=== PATIENT | female | born 1985 | race African-American/Black ===

== ENCOUNTER 2020-01-07 22:26 | Emergency (ER) | payer MEDICAID ==
[~2020-01-07] VITALS: Ht 160 cm; Wt 81.6 kg
[2020-01-07 22:48] VITALS: BP 89/56
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
[2020-01-07] MEDS ORDERED: IBUPROFEN 600 MG TAB PO ONE (23:20)
[2020-01-07] MEDS ORDERED: CYCLOBENZAPRINE 10 MG TAB PO ONE (23:20)
[2020-01-07 23:43] VITALS: BP 119/71
--- NOTE | 2020-01-07 23:43 | NUR ---
Patient discharged with v/s stable. Written and verbal after care instructions given and explained. Patient alert, oriented and verbalized understanding of instructions. Ambulatory with steady gait. All questions addressed prior to discharge. ID band removed. Patient advised to follow up with PMD. Rx of IBUPROFEN, ZOFRAN, FLEXERIL given. Patient educated on indication of medication including possible reaction and side effects. Opportunity to ask questions provided and answered.
== END 2020-01-07 23:43 | disposition home or self-care (01) ==
LOC: MED 22:26
DX: M79.10 Myalgia, unspecified site (principal); V89.2XXA Person injured in unspecified motor-vehicle accident, traffic, initial encounter; Y93.89 Activity, other specified; Y92.89 Other specified places as the place of occurrence of the external cause; Y99.8 Other external cause status
CPT/HCPCS: 99283

== ENCOUNTER 2020-03-16 11:06 | Emergency (ER) | payer MEDICAID ==
[~2020-03-16] VITALS: Ht 160 cm; Wt 81.6 kg
[2020-03-16 11:12] VITALS: BP 117/70
--- NOTE | 2020-03-16 11:28 | NUR ---
PATIENT PRESENTS TO ED WITH C/O VAGINAL BLEEDING X 2 DAYS . PT STATES LMP 12/31/2019. PT IS 1 YEAR POST- AND HAS BEEN BREAST FEEDING. PT ALSO STATES THAT SHE STARTED PASSING LARGE CLOTS LAST NIGHT . DENIES N/V/D; SKIN IS PINK/WARM/DRY; AAOX4 WITH EVEN AND STEADY GAIT; LUNGS CLEAR BL; HR EVEN AND REGULAR; PT DENIES ANY FEVER, CP, SOB, OR COUGH AT THIS TIME; PATIENT STATES PAIN OF 0/10 AT THIS TIME; VSS; PATIENT POSITIONED FOR COMFORT; HOB ELEVATED; BEDRAILS UP X2; BED DOWN. ER MD MADE AWARE OF PT STATUS.
--- NOTE | 2020-03-16 11:31 | NUR ---
Dr. Clay is evaluating the patient at bedside.
--- NOTE | 2020-03-16 11:50 | NUR ---
ASSISTED TO BR, UA OBTAINED AND DIPPED. HCG (+)
[2020-03-16] MEDS ORDERED: MORPHINE SULFATE 4 MG/ML SYR IVP ONE (12:00)
[2020-03-16] MEDS ORDERED: NACL 0.9% 1,000 ML IV ONE (12:00)
[2020-03-16] MEDS ORDERED: ONDANSETRON 4 MG/2 ML VIAL IVP ONE (12:00)
--- NOTE | 2020-03-16 12:15 | NUR ---
20G SL ESTABLISHED RIGHT A/C
[2020-03-16 12:24] LABS: BASOPHILS % (AUTO) 0.4 % (0.0-2.0); EOSINOPHILS # (AUTO) 0.1 K/uL (0-0.4); EOSINOPHILS % (AUTO) 0.9 % (0.0-4.0); HEMATOCRIT 36.2 % (36-48); HEMOGLOBIN 12.2 g/dL (12.0-16.0); LYMPHOCYTES # (AUTO) 1.4 K/uL (2.5-16.5); LYMPHOCYTES % (AUTO) 14.6 % (20.5-51.1); MEAN CORPUSCULAR HEMOGLOBIN 31 pg (27-31); MEAN CORPUSCULAR HGB CONC 34 g/dL (33-37); MEAN CORPUSCULAR VOLUME 91.7 fL (80-94); MONOCYTES # (AUTO) 0.3 K/uL (0.8-1.0); MONOCYTES % (AUTO) 3.5 % (1.7-9.3); NEUTROPHILS # (AUTO) 7.8 K/uL (1.8-7.7); NEUTROPHILS % (AUTO) 80.6 % (42.2-75.2); PLATELET COUNT (AUTO) 279 K/uL (140-450); RED BLOOD CELL COUNT(AUTO) 3.95 MIL/uL (4.20-5.40); WHITE BLOOD COUNT (AUTO) 9.6 K/uL (4.8-10.8)
[2020-03-16 12:31] LABS: APPEARANCE,URINE BLOODY (CLEAR); BILIRUBIN,URINE NEGATIVE (NEGATIVE); BLOOD, URINE 3+ (NEGATIVE); COLOR,URINE RED (YELLOW); LEUKOCYTE ESTERASE ,URINE TRACE (NEGATIVE); NITRITE, URINE POSITIVE (NEGATIVE); PH,URINE 7.5 (5.0-9.0); UGLUCOSE NEGATIVE (NEGATIVE)
--- NOTE | 2020-03-16 12:35 | NUR ---
US AT BEDSIDE
--- NOTE | 2020-03-16 12:40 | NUR ---
AMBULATED TO BR WITH ASSIST
[2020-03-16 12:43] LABS: RBC,URINE >100 /HPF (0-5); WBC,URINE 16-25 (MOD) /HPF (0-5)
[2020-03-16 12:47] LABS: CARBON DIOXIDE 24.8 mmol/L (21-32); CREATININE 0.7 mg/dL (0.6-1.3); POTASSIUM 3.8 mmol/L (3.5-5.1)
[2020-03-16 12:53] LABS: ALBUMIN 4.1 g/dL (3.4-5.0); TOTAL BILIRUBIN 0.4 mg/dL (0.0-1.0)
[2020-03-16] MEDS ORDERED: HYDROcodone/APAP 5/325 MG 1 TAB TAB PO ONE (15:05)
--- NOTE | 2020-03-16 15:10 | NUR ---
PAIN AND CRAMPING ARE RETURNINING, 7-12/22. MEDICATED AAS ORDERED
--- NOTE | 2020-03-16 16:30 | NUR ---
Patient discharged with v/s stable. Written and verbal after care instructions given and explained. Patient alert, oriented and verbalized understanding of instructions. Ambulatory with steady gait. All questions addressed prior to discharge. ID band removed. Patient advised to follow up with PMD. Rx of MACROBID AND ZOFRAN given. Patient educated on indication of medication including possible reaction and side effects. Opportunity to ask questions provided and answered.
[2020-03-16 16:47] VITALS: BP 105/66
== END 2020-03-16 16:30 | disposition home or self-care (01) ==
LOC: MED 11:06
DX: O20.0 Threatened abortion (principal); Z88.0 Allergy status to penicillin; Z98.890 Other specified postprocedural states
CPT/HCPCS: 36415; 76817; 80053; 81001; 84702; 85025; 86900; 86901; 96361; 96374; 96375; 99284; J2270; J2405; Q0092; J7030

== ENCOUNTER 2020-08-12 08:29 | Emergency (ER) | payer MEDICAID ==
[~2020-08-12] VITALS: Ht 160 cm; Wt 77.1 kg
[2020-08-12 08:31] VITALS: BP 138/91
--- NOTE | 2020-08-12 08:37 | NUR ---
Patient ambulated with steady gait to bed 6.
[2020-08-12] MEDS ORDERED: KETOROLAC 60 MG/2 ML VIAL IM ONE (08:45)
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
[2020-08-12] MEDS ORDERED: ACET-8386 PO (09:01)
[2020-08-12] MEDS ORDERED: IBUP-2213 PO (09:01)
[2020-08-12 09:24] VITALS: BP 138/91
--- NOTE | 2020-08-12 09:25 | NUR ---
Patient discharged with v/s stable. Written and verbal after care instructions ABOUT SHOULDER PAIN given and explained. Patient alert, oriented and verbalized understanding of instructions. Ambulatory with steady gait. All questions addressed prior to discharge. ID band removed. Patient advised to follow up with PMD. Rx of NORCO AND IBUPROFEN given. Patient educated on indication of medication including possible reaction and side effects. Opportunity to ask questions provided and answered.
== END 2020-08-12 09:25 | disposition home or self-care (01) ==
LOC: MED 08:29
DX: M25.512 Pain in left shoulder (principal); Z88.0 Allergy status to penicillin; Z98.890 Other specified postprocedural states; Z79.899 Other long term (current) drug therapy
CPT/HCPCS: 96372; 99283; J1885

== ENCOUNTER 2021-06-02 01:16 | Emergency (ER) | payer MEDICAID ==
[~2021-06-02] VITALS: Ht 160 cm; Wt 77.1 kg
[~2021-06-02 01:16] MED LIST: ACET-8386 PO; IBUP-2213 PO
[2021-06-02 01:33] VITALS: BP 113/71
--- NOTE | 2021-06-02 02:53 | NUR ---
seen and evaluated by Dr. Rivers
--- NOTE | 2021-06-02 02:58 | NUR ---
Patient discharged with v/s stable. Written and verbal after care instructions given and explained. Patient verbalized understanding. Ambulatory with steady gait. All questions addressed prior to discharge. Advised to follow up with PMD.
== END 2021-06-02 02:58 | disposition home or self-care (01) ==
LOC: MED 01:16
DX: O26.892 Other specified pregnancy related conditions, second trimester (principal); J06.9 Acute upper respiratory infection, unspecified; Z3A.16 16 weeks gestation of pregnancy; Z88.0 Allergy status to penicillin; Z79.899 Other long term (current) drug therapy; Z98.890 Other specified postprocedural states
CPT/HCPCS: 99281

== ENCOUNTER 2023-04-03 17:41 | Emergency (ER) | payer MEDICAID ==
[~2023-04-03] VITALS: Ht 160 cm; Wt 87.1 kg
[~2023-04-03 17:41] MED LIST changes: -ACET-8386 PO; +ACET-8905 PO
[2023-04-03 18:12] VITALS: BP 119/79; PULSE 60; RESP 18; TEMP 97.2; O2SAT 99
[2023-04-03] MEDS ORDERED: IBUP-2213 PO (19:36)
[2023-04-03] MEDS ORDERED: ACET-2619 PO (19:36)
== END 2023-04-03 19:53 | disposition home or self-care (01) ==
LOC: MED 17:41
DX: S93.691A Other sprain of right foot, initial encounter (principal); Z88.0 Allergy status to penicillin; Z79.899 Other long term (current) drug therapy; X58.XXXA Exposure to other specified factors, initial encounter; Y93.89 Activity, other specified; Y92.89 Other specified places as the place of occurrence of the external cause; Y99.8 Other external cause status
CPT/HCPCS: 73630; 99283